=== PATIENT | male | born 1950 | race Caucasian/White ===

== ENCOUNTER 2018-09-05 08:04 | Day surgery (SDC) | payer OTHER ==
[2018-09-04 14:49] VITALS: BMI 22.5
[2018-09-05] MEDS ORDERED: MIDAZOLAM HCL 2 MG/2 ML SINGLE DOSE VIAL ONE (08:40)
[2018-09-05 09:40] VITALS: TEMP 97.9
[2018-09-05 15:45] VITALS: BP 112/71; PULSE 69
--- NOTE | 2018-09-08 17:07 | PATH ---
Surgical Pathology Report Patient Name: YOKASTA KENDRICK [facility]. Rec. #: [id number] /Age/Gender: 1950 (Age: 68) / M Account: [id number] Location: [facility]-ENDOSCOPY Taken: 09/05/2018 Received: 09/05/2018 Reported: 09/08/2018 Physicians: Mirian Marino M.D. Specimen(s) Received A: 2ND PORTION DUODENUM AND BULB B: ANTRUM C: GE JUNCTION D: MID ESOPHAGUS Clinical History GERD, rule out Jean Baptiste's, colon cancer screening Postoperative diagnosis: Hiatal hernia, GERD, atrophic gastritis, normal colon Final Diagnosis A. SECOND PORTION DUODENUM AND BULB, BIOPSY: DUODENAL MUCOSA WITH CHRONIC DUODENITIS. NO HISTOLOGIC EVIDENCE OF CELIAC DISEASE. B. ANTRUM, BIOPSY: GASTRIC MUCOSA WITH CHRONIC GASTRITIS. IMMUNOSTAIN FOR H. PYLORI IS NEGATIVE. NEGATIVE FOR INTESTINAL METAPLASIA C. GE JUNCTION, BIOPSY: GASTROESOPHAGEAL JUNCTIONAL MUCOSA WITH REFLUX ESOPHAGITIS. POSITIVE FOR INTESTINAL METAPLASIA, MAY REPRESENT JEAN BAPTISTE'S ESOPHAGUS IN THE PROPER CLINICAL SETTING. NEGATIVE FOR DYSPLASIA. D. MID ESOPHAGUS, BIOPSY: FRAGMENTS OF SQUAMOUS EPITHELIUM WITH NO SIGNIFICANT PATHOLOGY CHANGE. NO HISTOLOGIC EVIDENCE OF EOSINOPHILIC ESOPHAGITIS. SEPARATE ONE FRAGMENT OF GASTRIC MUCOSA WITH NO SIGNIFICANT PATHOLOGIC CHANGE. NEGATIVE FOR INTESTINAL METAPLASIA. SUGGEST CLINICAL CORRELATION. Electronically Signed Chantelle Upton M.D. Gross Description A. Received in formalin, labeled "biopsy second portion of duodenum and duodenal bulb" are 2 lindquist, irregular portions of soft tissue averaging 0.4 cm. in greatest dimension. The specimens are submitted in toto in one cassette. B. Received in formalin, labeled "biopsy antrum" are 2 lindquist, irregular portions of soft tissue measuring 0.3 and 0.4 cm. in greatest dimension. The specimens are submitted in toto in one cassette. C. Received in formalin, labeled "biopsy GE junction" are 5 lindquist, irregular portions of soft tissue ranging from 0.2-0.3 cm. in greatest dimension. The specimens are submitted in toto in one cassette. D. Received in formalin, labeled "biopsy midesophagus" are 3 lindquist, irregular portions of soft tissue ranging from 0.2-0.7 cm. in greatest dimension. The specimens are submitted in toto in one cassette. /09/05/2018 saudi09/05/2018
--- NOTE | 2018-09-08 17:56 | PATH ---
Cytology Non-Gynecological Report Patient Name: YOKASTA KENDRICK Med. Rec. #: [id number] /Age/Gender: 1950 (Age: 68) / M Account: [id number] Location: [facility]-ENDOSCOPY Taken: 09/05/2018 Received: 09/05/2018 Reported: 09/08/2018 Physicians: Demi Corona M.D. Specimen(s) Received ESOPHAGEAL BRUSHING Clinical History Esophagitis Final Diagnosis ESOPHAGEAL BRUSHING FOR CYTOLOGY: SATISFACTORY FOR EVALUATION. SQUAMOUS CELLS WITH REACTIVE CELLULAR CHANGES. CHACORTA SPECIES. SCATTERED SQUAMOUS CELLS WITH REACTIVE CELLULAR CHANGES NOTED. NEUTROPHILS PRESENT. FUNGAL FORMS MORPHOLOGICALLY CONSISTENT WITH CHACORTA SPECIES HIGHLIGHTED BY PAS SPECIAL STAIN PRESENT. Electronically Signed Roxanna Looney M.D. Gross Description Approximately 15 cc of clear fluid with brush received in 95% alcohol. Two slides prepared and Pap stained. Cell block prepared.
== END 2018-09-05 10:30 | disposition home or self-care (01) ==
LOC: JASU-ENDO 08:04
PROVIDERS: ATTEND Internal Medicine Gastroenterology
PROC: 0DB98ZX Excision of Duodenum, Via Natural or Artificial Opening Endoscopic, Diagnostic (ICD-10-PCS; 2018-09-05)
PROC: 0DB68ZX Excision of Stomach, Via Natural or Artificial Opening Endoscopic, Diagnostic (ICD-10-PCS; 2018-09-05)
PROC: 0DB18ZX Excision of Upper Esophagus, Via Natural or Artificial Opening Endoscopic, Diagnostic (ICD-10-PCS; 2018-09-05)
PROC: 0DB28ZX Excision of Middle Esophagus, Via Natural or Artificial Opening Endoscopic, Diagnostic (ICD-10-PCS; 2018-09-05)
PROC: 0DB38ZX Excision of Lower Esophagus, Via Natural or Artificial Opening Endoscopic, Diagnostic (ICD-10-PCS; 2018-09-05)
PROC: 0DB48ZX Excision of Esophagogastric Junction, Via Natural or Artificial Opening Endoscopic, Diagnostic (ICD-10-PCS; 2018-09-05)
PROC: 0DD58ZX Extraction of Esophagus, Via Natural or Artificial Opening Endoscopic, Diagnostic (ICD-10-PCS; 2018-09-05)
PROC: 0DJD8ZZ Inspection of Lower Intestinal Tract, Via Natural or Artificial Opening Endoscopic (ICD-10-PCS; principal; 2018-09-05 09:00)
DX: Z12.11 Encounter for screening for malignant neoplasm of colon (principal); K64.8 Other hemorrhoids; K29.80 Duodenitis without bleeding; K29.50 Unspecified chronic gastritis without bleeding; K21.0 Gastro-esophageal reflux disease with esophagitis; K31.89 Other diseases of stomach and duodenum; B37.81 Candidal esophagitis; K44.9 Diaphragmatic hernia without obstruction or gangrene; K22.70 Barrett's esophagus without dysplasia
CPT/HCPCS: 43239; G0121; 88104; 88305-TC; 88312-TC; 88342-TC